=== PATIENT | female | born 1955 | race Caucasian/White ===

== ENCOUNTER 2022-12-21 10:44 | Emergency (ER) | payer MEDICARE, MEDICAID ==
[~2022-12-21] VITALS: Ht 160 cm; Wt 98.6 kg
[2022-12-21 11:31] VITALS: O2SAT 99
[2022-12-21 14:49] VITALS: BP 121/64; PULSE 85; RESP 18; TEMP 98.3
== END 2022-12-21 14:51 | disposition home or self-care (01) ==
LOC: ER 12:56
DX: S00.81XA Abrasion of other part of head, initial encounter (principal); R58 Hemorrhage, not elsewhere classified; I10 Essential (primary) hypertension; W18.30XA Fall on same level, unspecified, initial encounter; Y93.89 Activity, other specified; Y92.89 Other specified places as the place of occurrence of the external cause; Y99.8 Other external cause status
CPT/HCPCS: 70486; 99284